=== PATIENT | female | born 1960 | race Caucasian/White ===

== ENCOUNTER 2021-07-18 22:00 | Emergency (ER) | payer BC ==
[2021-07-18] MEDS ORDERED: Metoprolol Tartrate 25 MG Tab PO ONE (23:02)
[2021-07-19] MEDS ORDERED: Ondansetron 4 MG Tab.DIS PO ONE (01:42)
[2021-07-19] MEDS ORDERED: Acetaminophen 325 MG Tab PO ONE (01:43)
== END 2021-07-19 04:57 | disposition home or self-care (01) ==
LOC: JD.ED 22:00
DX: R11.2 Nausea with vomiting, unspecified (principal); I10 Essential (primary) hypertension; Z88.1 Allergy status to other antibiotic agents
CPT/HCPCS: 36415; 70450; 71045; 80053; 83735; 84484; 85025; 85610; 85730; 93005; 99284; A9270; 93010; 99285

== ENCOUNTER 2021-07-22 21:28 | Emergency (ER) | payer BC | END 2021-07-22 22:37 | disposition home or self-care (01) | LOC: JD.ED 21:28 | DX: R03.0 Elevated blood-pressure reading, without diagnosis of hypertension (principal); Z88.1 Allergy status to other antibiotic agents | CPT/HCPCS: 93005; 93010; 99283-25; 99284 ==